=== PATIENT | female | born 1955 | race Caucasian/White ===

== ENCOUNTER 2022-10-31 12:39 | Outpatient (CLI) | payer BC, MEDICARE, SELFPAY ==
--- NOTE | ~2022-10-31 | CT_ITS ---
EXAMINATION: CT pelvis w con DATE: 10/31/2022 13:16 INDICATION: Other specified diseases of anus and rectum. Hemorrhoids. TECHNIQUE: Computed tomography (CT) of the pelvis was performed with 100 mL Omnipaque 350 intravenous contrast. Automated exposure control and iterative reconstruction technique were employed. The dose- length product was 136.74 mGy-cm. COMPARISON: None FINDINGS: There are no dilated loops of bowel. There is wall thickening of the descending and sigmoid colon. There are no pathologically enlarged lymph nodes. The left ovarian vein is enlarged, consiste nt with pelvic venous insufficiency. Abnormal perirectal veins are not identified. There is no free i ntraperitoneal fluid. There are changes of anterior fusion procedure at L4-L5 with interbody devices. Partially visualized is an intrathecal catheter. IMPRESSION: 1. Wall thickening of the descending and sigmoid colon, consistent with interstitial edema versus col itis. 2. Pelvic venous insufficiency. Reviewed, dictated and finalized at location A. [employer] IMPRESSION: 1. Wall thickening of the descending and sigmoid colon, consistent with interst itial edema versus colitis. 2. Pelvic venous insufficiency.
[2022-10-31 13:12] LABS: Estimated Glomerular Filt Rate > 60
== END 2022-10-31 12:40 | disposition home or self-care (01) ==
PROVIDERS: PCP Family Medicine; Visit Provider Surgery
DX: K62.89 Other specified diseases of anus and rectum (principal); R93.3 Abnormal findings on diagnostic imaging of other parts of digestive tract; I87.2 Venous insufficiency (chronic) (peripheral)
CPT/HCPCS: 72193; Q9967

== ENCOUNTER 2022-11-17 00:47 | Day surgery (SDC) | payer BC, MEDICARE, SELFPAY ==
[2022-11-14 09:58] VITALS: BMI 20.9
--- NOTE | 2022-11-16 10:41 | PM.HPGS ---
History of Present Illness History of Present Illness Consent: Risks, benefits, and alternatives have been discussed and questions answered. Patient agrees to proceed with procedure. Chief complaint: neoplasm screening Narrative: Delfina Adair is a 67 year old female Who was referred for colon cancer screening. Review of Systems Review of Systems: All systems reviewed & are unremarkable except as noted in HPI and below PMFSH Past Medical History Medical History Chronic neck and back pain Depression Environmental allergies Family history of GERD History of esophageal stricture IBS (irritable bowel syndrome) Thyroid nodule Family History Family History Mother Diabetes mellitus Hypertension Grandparent Diabetes mellitus Sibling Family history of malignant neoplasm Social History Social History Smoking packs per day: 1 Smoking cigarettes per day: 20.0 Years smoked: 30 Smoking pack-years: 30.00 Smoking status: Former smoker Tobacco type: cigarettes Additional smoking assessment comments: 1 pack daily Alcohol intake: never Substance use: never Substance use type: does not use Lack of Transportation: No Lack of Food: Never True Current Housing: I Have Housing Concerned About Future Housing: No Difficulty Paying Gas/Electric Bills: No Difficulty Paying for Meds: No Currently Unemployed: No Education: High School Diploma/GED Difficulty w/ Childcare or Family Care: No Living arrangements: alone Additional living arrangements comments: Spouse Gender identity (if verbalized by the patient): Female Sexual Orientation (if Verbalized by the Patient): Straight or Heterosexual Spiritual care concerns: No Agree to blood products: Yes Meds Home Medications and Allergies Home Medications Medication Instructions Recorded Confirmed Type sucralfate 1 gram tablet 1 gm PO QID 09/19/19 11/14/22 History estradiol 0.5 mg tablet 0.5 mg PO DAILY 11/14/22 11/14/22 History potassium chloride 20 mEq 40 meq PO TID 11/14/22 11/14/22 History tablet,extended release Allergies Allergy/AdvReac Type Severity Reaction Status Date / Time gabapentin Allergy Severe Hives Verified 11/17/22 08:02 Exam Const: General: alert Orientation/consciousness: patient oriented x3 Resp: Auscultation: clear to auscultation bilaterally Cardio: Rhythm: regular rhythm GI: GI Palp: Yes Soft to palpation and No Tenderness to palpation present (GI) Neuro: General: patient oriented x3 Assessment and Plan Assessment and plan (1) Colon cancer screening: Code(s): Z12.11 - Encounter for screening for malignant neoplasm of colon Status: Acute Assessment and Plan: Colonoscopy with possible biopsy or polypectomy or cautery or injection of substances.
[2022-11-17 08:03] VITALS: BP 147/93; PULSE 92; RESP 18; TEMP 36.8; O2SAT 93
[2022-11-17] MEDS: LACTATED RINGERS 1,000 ML 150 ML IV CONT (08:12)
--- NOTE | 2022-11-17 08:18 | WPDANESEPPF ---
Anes - Initial Pre Proc Eval Procedure: Operation Date: 11/17/22 08:45 Proposed Procedures p Screening Colonoscopy - Alejandro Dowling MD Date/Time: 11/17/22 08:18 Surgeon: Alejandro Dowling MD Pre Op Diagnosis: neoplasm screening Patient Data Age: 67 Gender: F Height: 1.47 m Weight: 43.2 kg Last Vital Signs Temp 98.2 F 11/17/22 08:03 Pulse 92 11/17/22 08:03 Resp 18 11/17/22 08:03 BP 147/93 H 11/17/22 08:03 Pulse Ox 93 11/17/22 08:03 O2 Del Method Room Air 11/17/22 08:03 Allergies Allergy/AdvReac Type Severity Reaction Status Date / Time gabapentin Allergy Severe Hives Verified 11/17/22 08:02 Home Medications Medication Instructions Recorded Confirmed Type sucralfate 1 gram tablet 1 gm PO QID 09/19/19 11/14/22 History estradiol 0.5 mg tablet 0.5 mg PO DAILY 11/14/22 11/14/22 History potassium chloride 20 mEq 40 meq PO TID 11/14/22 11/14/22 History tablet,extended release Patient hx anesthesia problems: none Family hx anesthesia problems: none Results Review: All pre-operative results and documents have been reviewed as part of the pre-operative evaluation. [facility] Past Medical History Medical History Chronic neck and back pain Depression Environmental allergies Family history of GERD History of esophageal stricture IBS (irritable bowel syndrome) Thyroid nodule Family History Family History Mother Diabetes mellitus Hypertension Grandparent Diabetes mellitus Sibling Family history of malignant neoplasm Social History Social History Smoking packs per day: 1 Smoking cigarettes per day: 20.0 Years smoked: 30 Smoking pack-years: 30.00 Smoking status: Former smoker Tobacco type: cigarettes Additional smoking assessment comments: 1 pack daily Alcohol intake: never Substance use: never Substance use type: does not use Lack of Transportation: No Lack of Food: Never True Current Housing: I Have Housing Concerned About Future Housing: No Difficulty Paying Gas/Electric Bills: No Difficulty Paying for Meds: No Currently Unemployed: No Education: High School Diploma/GED Difficulty w/ Childcare or Family Care: No Living arrangements: alone Additional living arrangements comments: Spouse Gender identity (if verbalized by the patient): Female Sexual Orientation (if Verbalized by the Patient): Straight or Heterosexual Spiritual care concerns: No Agree to blood products: Yes Anes - Eval Final PreProcedure Day of Procedure 11/17/22 08:18 Patient weight: normal Heart: regular rate and rhythm Lungs: clear to auscultation Airway: Mallampati scale class II Neurological: alert and oriented Last oral intake: >/= 8 hours ASA classification: III Emergent: no Anesthetic plan: proceed Anesthesia type and monitoring: general GIVS and standard monitoring Results Review: All pre-operative results and documents have been reviewed as part of the pre-operative evaluation. Informed Consent: The patient's anesthetic plan and its attendant risks and benefits were discussed with the patient/family/POA. Questions were solicited and answers provided to the satisfaction of the patient/family/POA.
[2022-11-17 09:00] VITALS: BP 80/44; RESP 38; O2SAT 97
[2022-11-17 09:19] VITALS: BP 116/65; PULSE 79; RESP 17; O2SAT 96
== END 2022-11-17 09:29 | disposition home or self-care (01) ==
PROVIDERS: PCP Family Medicine; Visit Provider Internal Medicine Gastroenterology
PROC: 0DJD8ZZ Inspection of Lower Intestinal Tract, Via Natural or Artificial Opening Endoscopic (ICD-10-PCS; CPT 45378; principal; 2022-11-17 08:45)
DX: Z12.11 Encounter for screening for malignant neoplasm of colon (principal); K64.8 Other hemorrhoids; K57.30 Diverticulosis of large intestine without perforation or abscess without bleeding; Z87.891 Personal history of nicotine dependence
CPT/HCPCS: 45378; J2704; J7120